=== PATIENT | female | born 1990 | race African-American/Black ===

== ENCOUNTER 2018-07-20 14:59 | Emergency (ER) | payer OTHER, SELFPAY ==
[2018-07-20] MEDS ORDERED: Lidocaine 1% (PF) 30 ML VIAL ONE (15:31)
[2018-07-20] MEDS ORDERED: HYDROcodone/Acetaminophen 5/325 mg Tablet ONE (15:43)
[2018-07-20] MEDS ORDERED: Adacel (T-DAP) 0.5 ML VIAL ONE (15:43)
--- NOTE | 2018-07-20 15:57 | RAD ---
RIGHT FOOT RADIOGRAPHS 2 VIEWS: Date: 07/20/18 PROVIDED CLINICAL HISTORY: Elba nail in right foot. FINDINGS: There is a elba nail present associated with the soft tissues of the plantar aspect of the foot la terally at the level of the fifth metatarsal head. No evidence for osseous involvement. No evidence f or fracture or other acute osseous abnormality. IMPRESSION: Soft tissue foreign body as above. POS: [facility]
[2018-07-20] MEDS ORDERED: Bacitracin Zinc 1 Packet ONE (16:15)
== END 2018-07-20 16:33 | disposition home or self-care (01) ==
LOC: ERS 14:59
DX: S91.331A Puncture wound without foreign body, right foot, initial encounter (principal); F17.210 Nicotine dependence, cigarettes, uncomplicated; W45.0XXA Nail entering through skin, initial encounter
CPT/HCPCS: 11750; 90471; 90715; J2001

== ENCOUNTER 2020-08-16 18:34 | Emergency (ER) | payer SELFPAY ==
--- NOTE | 2020-08-16 21:07 | RAD ---
LEFT KNEE FOUR VIEWS: Indication: History of left knee pain Comparison: None FINDINGS: There is soft tissue swelling involving the anterior knee. No acute fracture or subluxation is eviden t. No joint capsular distension is evident. IMPRESSION: Soft tissue swelling left knee. No acute osseous abnormality. POS: [facility]
== END 2020-08-16 20:55 | disposition home or self-care (01) ==
LOC: ERS 18:34
DX: S83.92XA Sprain of unspecified site of left knee, initial encounter (principal); F17.210 Nicotine dependence, cigarettes, uncomplicated; W10.8XXA Fall (on) (from) other stairs and steps, initial encounter